=== PATIENT | female | born 1930 | race Caucasian/White ===

== ENCOUNTER 2016-10-28 09:11 | Emergency (ER) | payer MEDICARE ==
[~2016-10-28] VITALS: Ht 149.9 cm; Wt 64.0 kg
[~2016-10-28 09:11] MED LIST: ACETAMIN500 M2 PO; ACIPHEX20 MG PO; ALBUTEROL SUL0.083 % IN; ALBUTEROL0.5 % IN; ALBUTEROL2.5 MG/3 M IN; ALENDRONATE SOD70 MG PO; ALENDRONATE70 MG PO; AMOXICILLIN500 MG PO; ASPIRIN81 MG PO; AUGMENTIN875 MG PO; BROVANA15 MCG IN; BUDESONID2 IN; BUDESONID2 NEB; CALCIUM500 M4 OR; CEFTIN250 MG PO; CEFUROXIME500 MG PO; CYANOCOBALAM1000 MCG IJ; CYANOCOBALAM1000 MCG IM; DIGOXIN0.125 MG PO; DILTIAZEM HCL60 MG PO; DOXYCYC MONO100 M1 PO; DOXYCYCL HYC100 M3 PO; DUONEB IN; E400400 UNIT OR; EFFIENT5 MG PO; ELAVIL10 MG PO; FLUARIX QUADRIV1 INJ IM; FLUZONE1 M1 IM; FOSAMAX70 MG PO; GYNE-LOTRIMIN1 % EX; HYDRALAZINE10 MG PO; KEFLEX500 M1 PO; LOPRESSOR25 MG PO; LOSARTAN POT25 MG PO; LOSARTAN POTASS50 MG PO; LOTRISONE CREAM15 G1 EX; Levaquin PO; MAGNESIUM500 MG OR; MEDDOSEPAK OR; MEDDOSEPAK PO; METOPROL TAR25 M1 PO; METOPROL TAR25 MG PO; MONTELUKAST SOD10 MG PO; MUCINEX600 MG OR; NAPROXEN250 MG PO; NAPROXEN500 MG OR; NAPROXEN500 MG PO; NEXIUM40 M1 PO; NIFEDIPINE10 M1 PO; OMEPRAZOLE20 MG PO; OMNICEF300 M1 PO; OXY1; PAROXETINE10 MG PO; PLAVIX75 MG PO; PREDNISONE10 MG PO; PREDNISONE20 MG PO; PREDNISONE5 MG PO; PRILOSEC20 MG PO; PROAIR HFA IN; PULMICORT0.25 MG/2 IN; REMERON15 MG PO; RESTORIL15 MG PO; SENNA-PLUS1 TAB PO; SLEEP OR; SMZ-TMP DS1 TAB PO; SODIUM CHLOR3 % IN; SONATA10 M1 PO; SPIRIVA IN; SYMBICORT1 AE1 IN; TRAMADOL HCL50 MG PO; VITAMIN B-150 MG OR; VITAMIN C500 M1 OR; VITAMIN D1000 UNIT OR; VITAMIN D31000 UNI1 OR; VITAMIN D50000 UN1 PO; VITAMIN E400 UNIT PO; ZITHROMAX250 MG PO; ZOFRAN ODT4 MG PO; ZPAK PO
[2016-10-28 10:30] LABS: HEMATOCRIT 33.8 % (37.0-47.0); HEMOGLOBIN 11.5 g/dl (12.0-16.0); IMMATURE GRANULOCYTES 0.2 % (0.0-1.0); MEAN CELL VOLUME 93.4 fL CALC (80.0-100.0); MEAN CORPUSCULAR HGB 31.8 pG CALC (26.0-32.0); NEUT# 6.61 thou/uL (2.00-7.15); RED BLOOD COUNT 3.62 mill/uL (4.20-5.60); RED CELL DISTRI WIDTH 14.7 % (11.5-15.5)
[2016-10-28 11:04] LABS: ALKALINE PHOSPHATASE 97 u/l (38-126); ANION GAP 13 (6-22 (CALC)); BILIRUBIN, TOTAL 0.5 mg/dL (0.0-1.4); BUN 14 mg/dL (8-23); BUN/CREATININE RATIO 17 (12-20 (CALC)); CALCIUM 9.2 mg/dL (8.4-10.2); CARBON DIOXIDE 29 mmol/l (22-30); CHLORIDE 101 mmol/l (95-108); CREATININE 0.8 mg/dL (0.5-1.0); GFR > 60 ML/MIN (>=60 (CALC)); GFR FOR AFR.AMER. > 60 ML/MIN (>=60 (CALC)); GLUCOSE 116 mg/dL (82-115); POTASSIUM 4.1 mmol/l (3.5-5.1); SGOT/AST 26 u/l (9-36); SGPT/ALT 33 u/l (11-66); SODIUM 139 mmol/l (137-146); TOTAL PROTEIN 7.7 g/dL (6.3-8.2)
[2016-10-28 11:17] LABS: MYOGLOBIN 146 ng/mL (0 - 62)
[2016-10-28 11:17] LABS: URINE BILIRUBIN - DIPSTICK NEGATIVE (NEGATIVE); URINE BLOOD DIPSTICK NEGATIVE (NEGATIVE); URINE CLARITY CLEAR; URINE COLOR YELLOW; URINE GLUCOSE - DIPSTICK NEGATIVE (NEGATIVE); URINE KETONE NEGATIVE (NEGATIVE); URINE NITRITE - DIPSTICK NEGATIVE (Negative); URINE PROTEIN - DIPSTICK NEGATIVE (NEG-TRACE); URINE SPECIFIC GRAVITY <=1.005; URINE UROBILINOGEN - DIPSTICK 0.2 E.U./dL (0.2)
[2016-10-28 11:18] LABS: BARBITURATES NEGATIVE (NEGATIVE); COCAINE NEGATIVE (NEGATIVE); METHADONE NEGATIVE (NEGATIVE); OXCYCODONE NEGATIVE (NEGATIVE); TETRAHYDROCANNABIONOL NEGATIVE (NEGATIVE); TRICYLIC ANTIDEPRESSANTS NEGATIVE (NEGATIVE); URINE LEUK ESTERASE SMALL (NEGATIVE)
[2016-10-28 11:27] LABS: URINE BACTERIA RARE hpf; URINE SQUAMOUS EPITHELIAL CELL FEW EPI/hpf (0-FEW)
[2016-10-28] MEDS ORDERED: MACROBID100 MG PO (11:29)
[2016-10-28 11:39] VITALS: BP 143/61
== END 2016-10-28 12:03 | disposition home or self-care (01) ==
LOC: ED 09:11
PROVIDERS: Emergency Medicine
DX: J44.1 Chronic obstructive pulmonary disease with (acute) exacerbation (principal); N39.0 Urinary tract infection, site not specified; I10 Essential (primary) hypertension; I25.2 Old myocardial infarction; K21.9 Gastro-esophageal reflux disease without esophagitis; I25.10 Atherosclerotic heart disease of native coronary artery without angina pectoris; Z95.5 Presence of coronary angioplasty implant and graft

== ENCOUNTER 2016-11-29 10:50 | Emergency (ER) | payer MEDICARE ==
[~2016-11-29] VITALS: Ht 149.9 cm; Wt 45.0 kg
[~2016-11-29 10:50] MED LIST changes: +FLORASTOR250 M1 PO; +GUAIFENESI100 MG/51 PO; +KEFLEX500 MG PO; +MACROBID100 MG PO; +ZITHROMAX500 MG PO
[2016-11-29 11:47] LABS: HEMATOCRIT 36.1 % (37.0-47.0); HEMOGLOBIN 12.2 g/dl (12.0-16.0); IMMATURE GRANULOCYTES 0.8 % (0.0-1.0); MEAN CELL VOLUME 93.5 fL CALC (80.0-100.0); MEAN CORPUSCULAR HGB 31.6 pG CALC (26.0-32.0); MEAN CORPUSCULAR HGB CONC 33.8 g/L CALC (32.0-36.0); NEUT# 12.51 thou/uL (2.00-7.15); RED BLOOD COUNT 3.86 mill/uL (4.20-5.60)
[2016-11-29 11:59] LABS: ALBUMIN 3.7 g/dL (3.2-5.0); ALKALINE PHOSPHATASE 85 u/l (38-126); ANION GAP 14 (6-22 (CALC)); BILIRUBIN, TOTAL 0.6 mg/dL (0.0-1.4); BUN 24 mg/dL (8-23); BUN/CREATININE RATIO 30 (12-20 (CALC)); CALCIUM 8.7 mg/dL (8.4-10.2); CARBON DIOXIDE 24 mmol/l (22-30); CHLORIDE 102 mmol/l (95-108); CREATININE 0.8 mg/dL (0.5-1.0); GFR > 60 ML/MIN (>=60 (CALC)); GFR FOR AFR.AMER. > 60 ML/MIN (>=60 (CALC)); GLUCOSE 95 mg/dL (82-115); POTASSIUM 4.1 mmol/l (3.5-5.1); SGOT/AST 23 u/l (9-36); SGPT/ALT 41 u/l (11-66); SODIUM 136 mmol/l (137-146); TOTAL PROTEIN 7.1 g/dL (6.3-8.2)
[2016-11-29 12:11] LABS: MYOGLOBIN 85 ng/mL (0 - 62)
[2016-11-29 14:18] LABS: URINE BILIRUBIN - DIPSTICK NEGATIVE (NEGATIVE); URINE BLOOD DIPSTICK NEGATIVE (NEGATIVE); URINE CLARITY CLEAR; URINE COLOR YELLOW; URINE GLUCOSE - DIPSTICK NEGATIVE (NEGATIVE); URINE KETONE NEGATIVE (NEGATIVE); URINE LEUK ESTERASE NEGATIVE (NEGATIVE); URINE NITRITE - DIPSTICK NEGATIVE (Negative); URINE PROTEIN - DIPSTICK NEGATIVE (NEG-TRACE); URINE SPECIFIC GRAVITY <=1.005; URINE UROBILINOGEN - DIPSTICK 0.2 E.U./dL (0.2)
[2016-11-29 14:46] VITALS: BP 142/65
== END 2016-11-29 14:47 | disposition home or self-care (01) ==
LOC: ED 10:50
PROVIDERS: Emergency Medicine
DX: E87.70 Fluid overload, unspecified (principal); R07.9 Chest pain, unspecified; R06.02 Shortness of breath; R00.1 Bradycardia, unspecified

== ENCOUNTER 2017-03-01 15:43 | Emergency (ER) | payer MEDICARE ==
[~2017-03-01] VITALS: Ht 147.3 cm; Wt 65.0 kg
[~2017-03-01 15:43] MED LIST changes: +CBD SL; +ESOMEPRAZOLE MA20 MG PO; +NASOCORT NAB; +PROAIR RES108 MCG/AC; +SINGULAIR10 MG PO; +[UNRECOGNIZED DRUG - OTHER] SL
[2017-03-01 16:23] LABS: HEMATOCRIT 35.1 % (37.0-47.0); HEMOGLOBIN 11.6 g/dl (12.0-16.0); IMMATURE GRANULOCYTES 0.2 % (0.0-1.0); MEAN CELL VOLUME 95.9 fL CALC (80.0-100.0); MEAN CORPUSCULAR HGB 31.7 pG CALC (26.0-32.0); NEUT# 6.9 thou/uL (2.00-7.15); RED BLOOD COUNT 3.66 mill/uL (4.20-5.60); RED CELL DISTRI WIDTH 13.7 % (11.5-15.5)
[2017-03-01 16:39] LABS: ALBUMIN 4.1 g/dL (3.2-5.0); ALKALINE PHOSPHATASE 103 u/l (38-126); ANION GAP 16 (6-22 (CALC)); BILIRUBIN, TOTAL 0.3 mg/dL (0.0-1.4); BUN 20 mg/dL (8-23); BUN/CREATININE RATIO 22 (12-20 (CALC)); CALCIUM 9.1 mg/dL (8.4-10.2); CARBON DIOXIDE 26 mmol/l (22-30); CHLORIDE 105 mmol/l (95-108); CREATININE 0.9 mg/dL (0.5-1.0); GFR 59 ML/MIN (>=60 (CALC)); GFR FOR AFR.AMER. > 60 ML/MIN (>=60 (CALC)); GLUCOSE 108 mg/dL (82-115); POTASSIUM 4.3 mmol/l (3.5-5.1); SGOT/AST 25 u/l (9-36); SGPT/ALT 30 u/l (11-66); SODIUM 143 mmol/l (137-146); TOTAL PROTEIN 7.5 g/dL (6.3-8.2)
[2017-03-01 16:52] LABS: MYOGLOBIN 59 ng/mL (0 - 62)
[2017-03-01 17:38] VITALS: BP 137/63
== END 2017-03-01 17:50 | disposition home or self-care (01) ==
LOC: ED 15:43
PROVIDERS: Emergency Medicine
DX: J44.1 Chronic obstructive pulmonary disease with (acute) exacerbation (principal); I10 Essential (primary) hypertension; I25.10 Atherosclerotic heart disease of native coronary artery without angina pectoris; K21.9 Gastro-esophageal reflux disease without esophagitis; Z95.5 Presence of coronary angioplasty implant and graft; I25.2 Old myocardial infarction; Z99.81 Dependence on supplemental oxygen; R06.02 Shortness of breath

== ENCOUNTER 2017-06-19 07:54 | Emergency (ER) | payer MEDICARE ==
[~2017-06-19] VITALS: Ht 144.8 cm; Wt 57.3 kg
[~2017-06-19 07:54] MED LIST changes: +LOSARTAN POTAS100 MG PO; +PROAIR RES108 MCG/AC PO
[2017-06-19 08:51] VITALS: BP 177/87
== END 2017-06-19 09:09 | disposition home or self-care (01) ==
LOC: ED 07:54
PROC: 0HQEXZZ Repair Left Lower Arm Skin, External Approach (ICD-10-PCS; principal; 2017-06-19)
DX: S51.812A Laceration without foreign body of left forearm, initial encounter (principal); X58.XXXA Exposure to other specified factors, initial encounter; Y93.01 Activity, walking, marching and hiking; Y92.009 Unspecified place in unspecified non-institutional (private) residence as the place of occurrence of the external cause; R06.02 Shortness of breath

== ENCOUNTER 2018-05-10 09:00 | Outpatient (RCR) | payer MEDICARE ==
--- NOTE | 2018-05-03 13:00 | NUR ---
Pt. in for Treatment Team and IOP. Pt. is clean and neat. Alert and oriented times 3. Knows the date. Affect is bright. Mood happy. Pt. sang 2 songs. Pt. states she is getting lots of help from the program. Pt. denies any suicidal ideations. Pt. is compliant with her medications. Pt. denies any mediation changes. Pt. to continue with her current treatment plan. Pt. attending IOP 2 times a week with monthly 1:1. Will follow up with Pt. in one month. Treatment team concluded.
[2018-05-18] MEDS ORDERED: CIPROFLOXACN500 MG PO (16:02)
== END 2018-05-23 23:59 | disposition still patient (30) ==
LOC: SLIP3 09:00
PROVIDERS: ATTEND Specialist
DX: F33.0 Major depressive disorder, recurrent, mild (principal)

== ENCOUNTER 2018-05-12 16:16 | Inpatient (IN) | payer MEDICARE ==
[~2018-05-12] VITALS: Ht 154.9 cm; Wt 55.1 kg
--- NOTE | 2018-05-12 16:20 | NUR ---
PT TO ROOM VIA WHEELCHAIR.
--- NOTE | 2018-05-12 16:55 | NUR ---
INITIATED IV FLUIDS, ABT AND OFIRMEV ORDERED. VSS.
[2018-05-12 17:15] LABS: HEMATOCRIT 37.4 % (37.0-47.0); HEMOGLOBIN 12.4 g/dl (12.0-16.0); IMMATURE GRANULOCYTES 0.7 % (0.0-5.0); MEAN CELL VOLUME 94.7 fL CALC (80.0-100.0); MEAN CORPUSCULAR HGB 31.4 pG CALC (26.0-32.0); MEAN CORPUSCULAR HGB CONC 33.2 g/L CALC (32.0-36.0); NEUT# 16.99 thou/uL (2.00-7.15); RED BLOOD COUNT 3.95 mill/uL (4.20-5.60); RED CELL DISTRI WIDTH 14.1 % (11.5-15.5)
[2018-05-12 17:33] LABS: ALBUMIN 3.8 g/dL (3.2-5.0); ALKALINE PHOSPHATASE 120 u/l (38-126); ANION GAP 15 (6-22 (CALC)); BILIRUBIN, TOTAL 0.9 mg/dL (0.0-1.4); BUN 17 mg/dL (8-23); BUN/CREATININE RATIO 21 (12-20 (CALC)); CARBON DIOXIDE 25 mmol/l (22-30); CHLORIDE 99 mmol/l (95-108); CREATININE 0.8 mg/dL (0.5-1.0); GFR > 60 ML/MIN (>=60 (CALC)); GFR FOR AFR.AMER. > 60 ML/MIN (>=60 (CALC)); POTASSIUM 4.4 mmol/l (3.5-5.1); SGOT/AST 30 u/l (9-36); SODIUM 135 mmol/l (137-146); TOTAL PROTEIN 7.7 g/dL (6.3-8.2)
--- NOTE | 2018-05-12 17:46 | NUR ---
INITIATED IV ZITHROMAX ORDERED. PT RESP EVEN AND UNLABORED, MAINTAINING O2 SAT 95% ON O2 @2LPM VIA NC
--- NOTE | 2018-05-12 18:05 | NUR ---
PT AWAITING LAB RESULTS, DAUGHTER AT BEDSIDE. VSS. RESP EVEN AND UNLABORED
--- NOTE | 2018-05-12 19:00 | NUR ---
PT UP TO BEDSIDE COMMODE UNABLE TO URINATE AT THIS TIME. VSS. PT BECAME DYPNEIC WITH MINIMAL EXERTION
--- NOTE | 2018-05-12 19:00 | NUR ---
RECEIVED REPORT FROM NURSE RODRIGUEZ, PATIENT AWAKE, FAMILY IN ROOM, C/O PAIN ON OPERATIVE SITE, WILL MEDICATE, CALL LIGHT AT REACH
--- NOTE | 2018-05-12 19:56 | NUR ---
REPORT CALLED TO SHILOH RODRIGUEZ MED/SURG.
[2018-05-12 20:10] VITALS: BP 128/45
--- NOTE | 2018-05-12 20:10 | NUR ---
RECEEIVED REPORT FROM ER NURSE RESHMA, TRANSPORTED VIA BED,HOOKED TO 02 AT 3LPM, ADMITTING DX OF COPD EXACERBATION, PATIENT NOTED TO HAVE EXERTIONAL DYSPNEA, WITH SALINE LOCK ON LAC G20, NOTED TO HAVE PRODUCTIVE COUGH THICK GREEN IN COLOR, PATIENT ORIENTED TO ROOM AND CALL LIGHT SYSTEM BED ALARM IN PLACE. WILL CONTINUE TO MONITOR.
--- NOTE | 2018-05-12 20:10 | NUR ---
PT TO RM 268 ON TELE WITH RN.
--- NOTE | 2018-05-12 22:18 | NUR ---
CONTACTED DR. NERI WITH HOME MED[facility], WILL PUT ORDER IN PLACE,
[2018-05-13] VITALS (7 sets, daily range): BP systolic 120–161; BP diastolic 48–73
[2018-05-13 01:11] LABS: URINE BILIRUBIN - DIPSTICK NEGATIVE (NEGATIVE); URINE BLOOD DIPSTICK TRACE-INTACT (NEGATIVE); URINE COLOR YELLOW; URINE GLUCOSE - DIPSTICK NEGATIVE (NEGATIVE); URINE KETONE TRACE mg/dL (NEGATIVE); URINE LEUK ESTERASE NEGATIVE (NEGATIVE); URINE NITRITE - DIPSTICK NEGATIVE (Negative); URINE PROTEIN - DIPSTICK 30 mg/dL (NEG-TRACE); URINE UROBILINOGEN - DIPSTICK 0.2 E.U./dL (0.2)
--- NOTE | 2018-05-13 01:13 | NUR ---
PATIENT ALERT AND ORIENTED ABLE TO MAKE NEEDS KNOWN, ON O2 @3LPM VIA NC, NOTED TO HAVE SOB ON EXERTION, BSC IN PLACE, CURRENTLY RESTING IN BED, CALL LIGHT AT REACH
[2018-05-13 01:14] LABS: URINE BACTERIA FEW hpf; URINE SQUAMOUS EPITHELIAL CELL FEW EPI/hpf (0-FEW)
--- NOTE | 2018-05-13 05:19 | NUR ---
PATIENT RESTING IN BED, EYES CLOSED,REMAINS ON O2 AT 3LPM VIA NC, CALL LIGHT AT REACH,
--- NOTE | 2018-05-13 07:05 | NUR ---
REPORT RECEIVED FROM NIGHT NURSE; PT SITTING UP IN BED, AWAKE, ALERT; RESP EVEN AND UNLABORE; NO S/S OF DISTRESS NOTED; CALL SOLO IN REACH.
--- NOTE | 2018-05-13 08:21 | NUR ---
PT SITTING UP IN BED EATING BREAKFAST; 02@3L NC; PULSES STRONG; TELE IN PLACE; ACTIVE BOWEL SOUND; IV PATENT FLUSED WELL, SITE APPEARS HEALTHY; BSC; NO COUGH NOTED; CALL SOLO IN REACH;
--- NOTE | 2018-05-13 12:19 | NUR ---
CHILDREN'S BOOK AUTHOR AT BEDSIDE TO OBTAIN VITALS; PT SITTING UP IN BED EATING LUNCH AND WATCHING TV; 02 @3L NC; RESP EVEN AND UNLABORED; SUPTUM CUP PROVIDED FOR A SPUTUM SAMPLE FOR LAB; PT VERBALIZED UNDERSTANDING; VOICE NO CONCERNS; CALL SOLO IN REACH.
--- NOTE | 2018-05-13 13:10 | NUR ---
PT GOING DOWN FOR CT VIA W/C, 02 @3L NC; ACCOMPANIED BY A VOLUNTEER, [place] PASS PROVIDED; IN STABLE CONDITION.
--- NOTE | 2018-05-13 13:28 | NUR ---
PT BACK FROM CT, ACCOMPANIED BY A VOLUNTEER IN STABLE CONDITION; RESIDENTIAL BUILDING INSPECTOR ASSISTED PT BACK TO BED.
--- NOTE | 2018-05-13 15:52 | NUR ---
PT SITTING UP IN BED; RESP EVEN AND UNLABORED ON 02@3L NC; CALL SOLO IN REACH; NO S/S OF DISTRESS NOTED;
--- NOTE | 2018-05-13 19:00 | NUR ---
PATIENT SITTING IN HIGH FOWLERS POSITION, HOOKED TO 02 AT 3LPM, WITH EVEN UNLABORED BREATHING, NO SIGNS OF RESPIRATORY DISTRESS NOTED, DAUGHTER INSIDE ROOM, CALL LIGHT AT REACH
--- NOTE | 2018-05-13 20:00 | NUR ---
PATIENT ALERT AND ORIENTED ABLE TO MAKE NEEDS KNOWN, DENIES PAIN OR DISCOMFORTS AT THIS TIME, WITH SALINE LOCK G20 ON LAC PATENT, ON TELE READING ST 101, HOOKED TO 02 AT 3LPM VIA NC WITH EVEN UNLABORED BREATHING. DAUGHTER IN ROOM CALL LIGHT AT REACH.
--- NOTE | 2018-05-14 00:22 | NUR ---
AROUND 2345 TELE READING SHOWED AFIB, ASSESSED PATIENT DENIES CHEST PAIN AND DIZZINESS, V/S TAKEN FOLLOWS: BP142/68 T 98.8 P 102 R21 POX 97% ON 3LPMVIA NC, STAT EKG DONE, AT [address] NERI LEFT A VOICEMAIL TO CALL BACK, WILL CONTINUE TO MONITOR.
--- NOTE | 2018-05-14 00:33 | NUR ---
CALLED DR. NERI INFORMED HIM OF PATIENTS TELE READING AFIB, AND STAT EKG SHOWS AFIB, NO HX OF AFIB, INFORMED THAT PT IS ASYMPTOMATIC NO DIZINESS V/S 142/68, 98.8F, HR 102 R 21 POX 97% ON 3LPM, INFORMED ALSO ABOUT THE CURRENT MEDICATIONS, MADE NO NEW ORDERS AT THIS TIME, WILL CONTINUE TO MONITOR.
[2018-05-14 04:10] VITALS: BP 120/74
--- NOTE | 2018-05-14 04:31 | NUR ---
PATIENT HAS UNSTEADY GAIT WAS TRYING TO GET OUT OF BED TO GO TO COMMODE, DIDNT ASK FOR ASSISTANCE, PUT ON COMMODE, AND ASSISTED BACK TYO BED, BED ALARM IN PLACE
--- NOTE | 2018-05-14 05:45 | NUR ---
PATIENT ALERT AND ORIENTED, DENIES PAIN OR DISCOMFORT, EDUCATED ON TO CALL FOR ASSISTANCE FOR TRANSFER, BED ALARM IN PLACE.
[2018-05-14 06:10] LABS: IMMATURE GRANULOCYTES 0.5 % (0.0-5.0); MEAN CELL VOLUME 96.3 fL CALC (80.0-100.0); MEAN CORPUSCULAR HGB 31.9 pG CALC (26.0-32.0); MEAN CORPUSCULAR HGB CONC 33.1 g/L CALC (32.0-36.0); NEUT# 10.46 thou/uL (2.00-7.15); RED BLOOD COUNT 3.2 mill/uL (4.20-5.60); RED CELL DISTRI WIDTH 14.3 % (11.5-15.5)
[2018-05-14 06:11] LABS: HEMATOCRIT 30.8 % (37.0-47.0); HEMOGLOBIN 10.2 g/dl (12.0-16.0)
[2018-05-14 06:13] LABS: ALKALINE PHOSPHATASE 110 u/l (38-126); AMYLASE < 30 u/l (30-110); ANION GAP 13 (6-22 (CALC)); BILIRUBIN, TOTAL 0.8 mg/dL (0.0-1.4); BUN 12 mg/dL (8-23); BUN/CREATININE RATIO 17 (12-20 (CALC)); CARBON DIOXIDE 25 mmol/l (22-30); CHLORIDE 103 mmol/l (95-108); CREATININE 0.7 mg/dL (0.5-1.0); GFR > 60 ML/MIN (>=60 (CALC)); GFR FOR AFR.AMER. > 60 ML/MIN (>=60 (CALC)); LIPASE < 10 u/l (23-300); MAGNESIUM 1.9 mg/dL (1.6-2.3); POTASSIUM 3.9 mmol/l (3.5-5.1); SGOT/AST 23 u/l (9-36); SODIUM 137 mmol/l (137-146)
[2018-05-14 06:18] LABS: ALBUMIN 2.8 g/dL (3.2-5.0)
--- NOTE | 2018-05-14 06:30 | NUR ---
ED CALLED ABOUT PATIENT TELE READING AFIB 130'S, ASSESSED PATIENT V/S FOLLOWS; BP 110/58 T 98.4 HR 112, R23 POX 96% ON 3LPM VIA NC, DENIES CHEST PAIN OR ANY DISCOMFORTS AT THIS TIME, PATIENT WAS COUGHING AND WAS JUST GIVEN PULMICORT NEB. WILL CONTINUE TO MONITOR.
--- NOTE | 2018-05-14 06:51 | NUR ---
CALLED DR. NERI ABOUT PATIENT TELE READING AFIB 130'S, INFORMED ABOUT PREVIOUS V/S AND WAS COUGHING AFTER BREATHING TREATMENT, NO NEW ORDERS MADE AT THIS TIME, AND CONTINUE MONITORING
--- NOTE | 2018-05-14 07:25 | NUR ---
PT REPORT RECIEVED FROM MICHAEL MATAMOROS. PT WATCHING TELEVISION TALKING W/ DAUGHTER. NO S/S OF DISTRESS. CALL LIGHT IN REACH. WILL CONTINUE TO MONITOR.
[2018-05-14 09:27] VITALS: BP 121/61
--- NOTE | 2018-05-14 09:27 | NUR ---
PT A/O X3. SPEECH IS CLEAR. RESP EVEN AND UNLABORED. LUNG SOUNDS DIMINISHED. TELE IN PLACE. PT DOES HAS SOME SOB. O2 @3L ON PT. BOWEL SOUNDS ACTIVE X4. STRONG RADIAL AND PEDAL PULSES. #2O LAC SL. FLUSHED AND PATENT. SITE APPEARS HEALTHY. SKI INTACT. PT DENIES ANY PAIN OR NEEDS. POC DISCUSSED. SAFETY PRECAUTIONS IN PLACE. CALL LIGHT IN REACH. WILL CONTINUE TO MONITOR.
--- NOTE | 2018-05-14 10:14 | NUR ---
SEAM RUBBER CALLED STATING PT HAS CONVERTED FROM AFIBB BACK TO SINUS RHYTHM. WILL CONTINUE TO MONITOR
--- NOTE | 2018-05-14 12:25 | NUR ---
PT SITTING IN RECLINER EATING LUNCH. TELE IN PLACE. NO C/O PAIN OR NEEDS. CALL LIGHT IN REACH. WILL CONTINUE TO MONITOR.
[2018-05-14 12:31] VITALS: BP 133/66
--- NOTE | 2018-05-14 13:10 | NUR ---
DR RAMIREZ IN TO SEE PT. MADE AWARE OF AFIBB CONVERSION DURING WET CHAR CONVEYOR TENDER. NO NEW ORDERS AT THIS TIME.
--- NOTE | 2018-05-14 16:40 | NUR ---
PT SITTING IN RECLINER TALKING W/ FAMILY. NO C/O PAIN OR NEEDS. TELE IN PLACE. CALL LIGHT IN REACH. WILL CONTINUE TO MONITOR.
[2018-05-14 16:44] VITALS: BP 143/66
[2018-05-14 19:00] VITALS: BP 160/72
--- NOTE | 2018-05-14 19:40 | NUR ---
REPORT REVCIVED MARCUS PORRAS LPN. POC DISCUSSED. PT VOICED UNDERSTANDING. PT A/O ABLE TO VOICE NEEDS. SOME FORGETFULLNESS NOTED.Pt iv nicolasnet. no s.s of infection.pt educated to ask for assistance before getted out of the bed. eill continue to monitor. will monitor.
[2018-05-15] VITALS: BP 144/67
--- NOTE | 2018-05-15 | NUR ---
iv abx administered. pt resting in bed with eyes closed. iv patent. no sign and symptoms of infection. meds toleratd will. educated not to het oob with help. bed in lowest position. will monitor.
--- NOTE | 2018-05-15 04:00 | NUR ---
pt restin in bed with eyes close. no other concern at this time. will monitor.
[2018-05-15 04:20] VITALS: BP 151/82
[2018-05-15 06:11] LABS: CHOLESTEROL HDL RATIO 2.5 (<4.4 (CALC))
[2018-05-15 06:14] LABS: HEMATOCRIT 31.9 % (37.0-47.0); HEMOGLOBIN 10.4 g/dl (12.0-16.0); IMMATURE GRANULOCYTES 0.5 % (0.0-5.0); MEAN CELL VOLUME 96.4 fL CALC (80.0-100.0); MEAN CORPUSCULAR HGB 31.4 pG CALC (26.0-32.0); MEAN CORPUSCULAR HGB CONC 32.6 g/L CALC (32.0-36.0); NEUT# 6.16 thou/uL (2.00-7.15); RED BLOOD COUNT 3.31 mill/uL (4.20-5.60); RED CELL DISTRI WIDTH 14.3 % (11.5-15.5)
[2018-05-15 06:41] LABS: ALBUMIN 2.9 g/dL (3.2-5.0); ALKALINE PHOSPHATASE 107 u/l (38-126); ANION GAP 13 (6-22 (CALC)); BILIRUBIN, TOTAL 0.6 mg/dL (0.0-1.4); BUN 10 mg/dL (8-23); BUN/CREATININE RATIO 13 (12-20 (CALC)); CARBON DIOXIDE 26 mmol/l (22-30); CHLORIDE 105 mmol/l (95-108); CREATININE 0.7 mg/dL (0.5-1.0); GFR > 60 ML/MIN (>=60 (CALC)); GFR FOR AFR.AMER. > 60 ML/MIN (>=60 (CALC)); POTASSIUM 3.7 mmol/l (3.5-5.1); SGOT/AST 27 u/l (9-36); SODIUM 139 mmol/l (137-146); TOTAL PROTEIN 6.1 g/dL (6.3-8.2)
[2018-05-15 08:20] VITALS: BP 137/59
--- NOTE | 2018-05-15 09:35 | NUR ---
PT SITTING UP IN RECLINER, WATCHING TV; A/OX3; RESP LABORED ON 02@3L NC; PULSES STRONG; LUNGS DIMINISHED; ACTIVE BOWEL SOUND; SKIN INTACT; TELE IN PLACE; IV FLUSHED WITHOUT DIFFICULTY; SAFETY PRECAUTION REINFORCE; CALL SOLO IN REACH;
[2018-05-15 11:00] VITALS: BP 136/55
--- NOTE | 2018-05-15 11:33 | NUR ---
DR RAMIREZ AT BEDSIDE TO DISCUSS POC; SITTING UP WATCHING TV; [address]; TELE IN PLACE; VOICE NO CONCERNS; CALL SOLO IN REAC;
[2018-05-15 16:30] VITALS: BP 133/75
--- NOTE | 2018-05-15 16:41 | NUR ---
PT REMAIN SITTING UP IN RECLINER; VENOFER INFUSING WITHOUT DIFFICULTY; SITE APPEARS HEALTHY; PT VOICE NO CONCERNS; CALL SOLO IN REACH.
[2018-05-15 19:10] VITALS: BP 165/74
--- NOTE | 2018-05-15 19:26 | NUR ---
REPORT GIVEN BY MICHAEL ZUNIGA. PATIENT SITTING IN RECLINER WITH DAUGHTER PRESENT. RESP EVEN AND UNLABORED, O2 VIA NC PRESENT. NO S/S OF DISTRESS NOTED. CALL LIGHT WITHIN REACH. FALL PRECAUTIONS IN PLACE. PLAN OF CARE DISCUSSED. PATIENT INFORMED TO CALL WITH ANY ANY QUESTIONS OR CONCERNS. ASSESSMENT COMPLETE.
[2018-05-16 00:10] VITALS: BP 145/64
--- NOTE | 2018-05-16 00:50 | NUR ---
PATIENT RESTING WITH EYES CLOSED. RESP EVEN AND UNLABORED. NO S/S OF DISTRESS NOTED.
[2018-05-16 04:20] VITALS: BP 164/63
--- NOTE | 2018-05-16 04:35 | NUR ---
PATIENT RESTING WITH EYES CLOSED. RESP EVEN AND UNLABORED. NO S/S OF DISTRESS NOTED.
[2018-05-16 05:16] LABS: HEMATOCRIT 31.6 % (37.0-47.0); HEMOGLOBIN 10.1 g/dl (12.0-16.0); IMMATURE GRANULOCYTES 0.5 % (0.0-5.0); MEAN CELL VOLUME 96.9 fL CALC (80.0-100.0); NEUT# 6.13 thou/uL (2.00-7.15); RED BLOOD COUNT 3.26 mill/uL (4.20-5.60); RED CELL DISTRI WIDTH 14.3 % (11.5-15.5)
[2018-05-16 05:50] LABS: ALBUMIN 2.7 g/dL (3.2-5.0); ALKALINE PHOSPHATASE 103 u/l (38-126); ANION GAP 11 (6-22 (CALC)); BILIRUBIN, TOTAL 0.6 mg/dL (0.0-1.4); BUN 8 mg/dL (8-23); BUN/CREATININE RATIO 12 (12-20 (CALC)); CARBON DIOXIDE 27 mmol/l (22-30); CHLORIDE 106 mmol/l (95-108); CREATININE 0.7 mg/dL (0.5-1.0); GFR > 60 ML/MIN (>=60 (CALC)); GFR FOR AFR.AMER. > 60 ML/MIN (>=60 (CALC)); MAGNESIUM 1.9 mg/dL (1.6-2.3); POTASSIUM 3.6 mmol/l (3.5-5.1); SGOT/AST 42 u/l (9-36); SODIUM 140 mmol/l (137-146); TOTAL PROTEIN 5.8 g/dL (6.3-8.2)
[2018-05-16 07:45] VITALS: BP 139/61
--- NOTE | 2018-05-16 08:00 | NUR ---
REPORT RECEIVED FROM MICHAEL TAPIA. PT ASSISTED BY STAFF FOR SHOWER. DENIES PAIN. REPORTING OF CONCERNS ENCOURAGED. PLAN OF CARE DISCUSSED. MEDICATIONS ADN SCHEDULES REVIEWED. PT STATES UNDERSTANDING OF INFORMATION. CALL LIGHT REVIEWED AND IN REACH. PT SITTING IN CHAIR AT BEDSIDE. FALL PRECAUTIONS AND ASKING FOR ASSISTANCE REINFORCED.
[2018-05-16 11:32] VITALS: BP 141/68
--- NOTE | 2018-05-16 12:00 | NUR ---
DR. RAMIREZ IN TO SEE PT. PLAN OF CARE UPDATED. PT SITTING IN CHAIR AT BEDSIDE. NO COMPLAINTS.
[2018-05-16 15:44] VITALS: BP 149/77
--- NOTE | 2018-05-16 16:40 | NUR ---
PT ASSISTED TO BED. RESTING COMFORTABLY NOW.
[2018-05-16 19:00] VITALS: BP 141/77
--- NOTE | 2018-05-16 20:03 | NUR ---
PT RESTING IN BED, NO SIGNS OF DISTRESS NOTED, RESP EVEN AND UNLABORED. DISCUSSED POC, AND MEDICATIONS DUE. PT IN AGREEMENT. ALERT AND ORIENTED X3, ASSESSMENT COMPLETED. VOICES NO NEEDS OR COMPLAINTS AT THIS TIME. CALL LIGHT IN REACH,CONTINUE TO MONITOR.
[2018-05-17] VITALS (7 sets, daily range): BP systolic 129–161; BP diastolic 61–73
--- NOTE | 2018-05-17 00:09 | NUR ---
INTIATED IV MIRANDA, PT VOICES NO NEEDS OR COMPLAINTS AT THIS TIME, CALL LIGHT IN REACH,CONTINUE TO MONITOR.
--- NOTE | 2018-05-17 01:54 | NUR ---
PT RESTING IN BED, WITH EYES CLOSED, NO SIGNS OF DISTRESS NOTED, RESP EVEN AND UNLABORED. CALL LIGHT IN REACH,CONTINUE TO MONITOR.
[2018-05-17 05:31] LABS: HEMATOCRIT 29.8 % (37.0-47.0); HEMOGLOBIN 9.9 g/dl (12.0-16.0); IMMATURE GRANULOCYTES 0.4 % (0.0-5.0); MEAN CELL VOLUME 96.4 fL CALC (80.0-100.0); MEAN CORPUSCULAR HGB CONC 33.2 g/L CALC (32.0-36.0); NEUT# 7.77 thou/uL (2.00-7.15); RED BLOOD COUNT 3.09 mill/uL (4.20-5.60); RED CELL DISTRI WIDTH 14.2 % (11.5-15.5)
--- NOTE | 2018-05-17 05:35 | NUR ---
IV MIRANDA REED, PT VOICES NO NEEDS OR COMPLAINTS AT THIS TIME. CALL LIGHT IN REACH,CONTINUE TO MONITOR.
[2018-05-17 05:54] LABS: ALBUMIN 2.7 g/dL (3.2-5.0); ALKALINE PHOSPHATASE 92 u/l (38-126); ANION GAP 12 (6-22 (CALC)); BILIRUBIN, TOTAL 0.7 mg/dL (0.0-1.4); BUN 6 mg/dL (8-23); BUN/CREATININE RATIO 8 (12-20 (CALC)); CARBON DIOXIDE 28 mmol/l (22-30); CHLORIDE 104 mmol/l (95-108); CREATININE 0.7 mg/dL (0.5-1.0); GFR > 60 ML/MIN (>=60 (CALC)); GFR FOR AFR.AMER. > 60 ML/MIN (>=60 (CALC)); MAGNESIUM 1.8 mg/dL (1.6-2.3); POTASSIUM 3.5 mmol/l (3.5-5.1); SGOT/AST 39 u/l (9-36); SODIUM 140 mmol/l (137-146); TOTAL PROTEIN 5.7 g/dL (6.3-8.2)
--- NOTE | 2018-05-17 07:00 | NUR ---
SHIFT CHANGE REPORT, PT AWAKE ALERT AND OIRENTED SITTING UP IN RECLINER, NO C/O DISCOMFORT, O2 @ 2L VIA NC IN PLACE, TELE MONITOR IN PLACE, CALL SOLO IN REACH.
--- NOTE | 2018-05-17 12:00 | NUR ---
SITTING UP IN RECLINER, ATE PORTION OF MEAL, INFORMED ABOUT HAVING SHOWER SOON AND GOING BACK TO BED TO REST, STATED UNDERSTANDING, WILL CONTINUE TO MONITOR.
--- NOTE | 2018-05-17 13:55 | NUR ---
Spoke with patient about medications. Pt understood uses of all medications. She had no pertinent questions at this time. Patient reports her medications are working for her and she is not experiencing any unwanted side effects. Pt acknowledged to reach out to pharmacy if any questions arise and we are available to answer them.
--- NOTE | 2018-05-17 16:09 | NUR ---
RESTING IN BED AT THIS TIME, ALL NEEDS MET/ADDRESSED, CALL SOLO IN REACH.
--- NOTE | 2018-05-17 19:25 | NUR ---
PT. SITTING UP IN RECLINER WATCHING TV;ASSESSMENT COMPLETED; IV SITE PATENT AND SL; DENIES NEEDS/PAIN; TELEMETRY IN PLACE; O2 INFUSING PER NC PER ORDER; ENCOURAGED TO CALL FOR ANY NEEDS; CALL LIGHT IS IN REACH.
--- NOTE | 2018-05-17 23:33 | NUR ---
PT. SITTING UP IN BED WITH NO DISTRESS NOTED; DENIES NEEDS; SCHED ABT HUNG; ENCOURAGED TO CALL FOR ANY NEEDS; CALL LIGHT IS IN REACH; BED ALARM SET; WILL CONTINUE TO MONITOR.
--- NOTE | 2018-05-18 02:00 | NUR ---
RESTING IN BED WITH EYES CLOSED; NO DISTRESS NOTED; RESP EVEN AND UNLABORED; BED ALARM ON; CALL LIGHT IS IN REACH.
[2018-05-18 03:35] VITALS: BP 137/65
--- NOTE | 2018-05-18 03:45 | NUR ---
PT. RESTING IN BED WITH EYES CLOSED; NO DISTRESS NOTED; RESP EVEN AND UNLABORED; CALL LIGHT IS IN REACH; WILL CONTINUE TO MONITOR.
[2018-05-18 05:05] LABS: HEMATOCRIT 31.6 % (37.0-47.0); HEMOGLOBIN 10.3 g/dl (12.0-16.0); IMMATURE GRANULOCYTES 0.7 % (0.0-5.0); MEAN CELL VOLUME 98.4 fL CALC (80.0-100.0); MEAN CORPUSCULAR HGB 32.1 pG CALC (26.0-32.0); MEAN CORPUSCULAR HGB CONC 32.6 g/L CALC (32.0-36.0); NEUT# 12.91 thou/uL (2.00-7.15); RED BLOOD COUNT 3.21 mill/uL (4.20-5.60); RED CELL DISTRI WIDTH 14.3 % (11.5-15.5)
[2018-05-18 06:18] LABS: ALBUMIN 2.7 g/dL (3.2-5.0); ALKALINE PHOSPHATASE 90 u/l (38-126); ANION GAP 13 (6-22 (CALC)); BILIRUBIN, TOTAL 0.6 mg/dL (0.0-1.4); BUN 6 mg/dL (8-23); BUN/CREATININE RATIO 9 (12-20 (CALC)); CARBON DIOXIDE 30 mmol/l (22-30); CHLORIDE 101 mmol/l (95-108); CREATININE 0.7 mg/dL (0.5-1.0); GFR > 60 ML/MIN (>=60 (CALC)); GFR FOR AFR.AMER. > 60 ML/MIN (>=60 (CALC)); MAGNESIUM 1.8 mg/dL (1.6-2.3); POTASSIUM 3.1 mmol/l (3.5-5.1); SGOT/AST 33 u/l (9-36); SODIUM 140 mmol/l (137-146); TOTAL PROTEIN 5.8 g/dL (6.3-8.2)
--- NOTE | 2018-05-18 08:21 | NUR ---
SHIFT CHANGE REPORT, PT AWAKE AND ALERT SITTING UP IN BED, O2 @ 2L VIA NC IN PLACE, TELE MONITOR IN PLACE, CALL SOLO IN REACH.
[2018-05-18 08:43] VITALS: BP 138/54
[2018-05-18 11:35] VITALS: BP 149/71
--- NOTE | 2018-05-18 12:34 | NUR ---
SITTING UP RECLINER HAVING MEAL, MEDICAL TEAM ROUNDED AND DISCUSSED PLAN OF CARE FOR PHYSICAL THERAPY THEN D/C HOME TODAY, DAUGHTER AT BEDSIDE AND BOTH PATIENT AND DAUGHTER AGREE WITH PLAN.
--- NOTE | 2018-05-18 15:40 | NUR ---
DAUGHTER HERE TO RECEIVE PT, FRUSTRATED PT IS NOT YET READY. PT WANTS TO GO HOME, WANTED PHYSICAL THERAPY ASSESSMENT BUT STAFF NOT HERE TODAY, INFORMED, WILL CONTINUE TO MONTIOR.
[2018-05-18] MEDS ORDERED: CIPROFLOXACN500 MG PO (16:02)
--- NOTE | 2018-05-18 16:38 | NUR ---
Discharge instructions given. Patient verbalizes understanding of same. Discharged in stable condition via Wheelchair to Home with family. All belongings sent with pt.
== END 2018-05-18 16:40 | disposition home health service (06) | DRG 178 ==
LOC: ED 16:16 → ED-I 18:41 → ED 18:54 → MS2 18:55
PROVIDERS: Family Medicine; ADMIT Internal Medicine; ATTEND Internal Medicine Nephrology
DX: J15.1 Pneumonia due to Pseudomonas (principal); J44.1 Chronic obstructive pulmonary disease with (acute) exacerbation; E46 Unspecified protein-calorie malnutrition; J96.10 Chronic respiratory failure, unspecified whether with hypoxia or hypercapnia; J44.0 Chronic obstructive pulmonary disease with (acute) lower respiratory infection; I11.9 Hypertensive heart disease without heart failure; I25.10 Atherosclerotic heart disease of native coronary artery without angina pectoris; J98.6 Disorders of diaphragm; E78.5 Hyperlipidemia, unspecified; I95.9 Hypotension, unspecified; R73.9 Hyperglycemia, unspecified; D64.9 Anemia, unspecified; I48.0 Paroxysmal atrial fibrillation; K21.9 Gastro-esophageal reflux disease without esophagitis; I08.1 Rheumatic disorders of both mitral and tricuspid valves; Z87.891 Personal history of nicotine dependence; I25.2 Old myocardial infarction; Z99.81 Dependence on supplemental oxygen; Z95.5 Presence of coronary angioplasty implant and graft; Z77.22 Contact with and (suspected) exposure to environmental tobacco smoke (acute) (chronic); Z68.22 Body mass index [BMI] 22.0-22.9, adult
CPT/HCPCS: G0378; J0131; J1650; J1756

== ENCOUNTER 2018-08-20 15:47 | Inpatient (IN) | payer MEDICARE ==
[~2018-08-20] VITALS: Ht 154.9 cm; Wt 53.2 kg
[~2018-08-20 15:47] MED LIST changes: +CARDIZEM30 MG PO; +CIPROFLOXACN500 MG PO; +PROBIOTIC PO; +THC SL; +VITAMIN C1000 MG PO
[2018-08-20 16:44] LABS: HEMATOCRIT 38.9 % (37.0-47.0); HEMOGLOBIN 12.8 g/dl (12.0-16.0); IMMATURE GRANULOCYTES 0.5 % (0.0-5.0); MEAN CORPUSCULAR HGB 32.2 pG CALC (26.0-32.0); MEAN CORPUSCULAR HGB CONC 32.9 g/L CALC (32.0-36.0); NEUT# 12.65 thou/uL (2.00-7.15); RED BLOOD COUNT 3.97 mill/uL (4.20-5.60)
[2018-08-20 17:06] LABS: ALKALINE PHOSPHATASE 129 u/l (38-126); BILIRUBIN, TOTAL 0.7 mg/dL (0.0-1.4); BUN 19 mg/dL (8-23); BUN/CREATININE RATIO 26 (12-20 (CALC)); CARBON DIOXIDE 24 mmol/l (22-30); CHLORIDE 103 mmol/l (95-108); CREATININE 0.7 mg/dL (0.5-1.0); GFR > 60 ML/MIN (>=60 (CALC)); GFR FOR AFR.AMER. > 60 ML/MIN (>=60 (CALC)); SGOT/AST 28 u/l (9-36); SODIUM 137 mmol/l (137-146)
[2018-08-20 17:10] LABS: ALBUMIN 4.2 g/dL (3.2-5.0); ANION GAP 15 (6-22 (CALC)); POTASSIUM 4.6 mmol/l (3.5-5.1); TOTAL PROTEIN 7.9 g/dL (6.3-8.2)
[2018-08-20 19:08] VITALS: BP 136/64
[2018-08-21 04:13] VITALS: BP 178/83
[2018-08-21 05:35] VITALS: BP 148/82
[2018-08-21 08:41] VITALS: BP 157/67
[2018-08-21 16:30] VITALS: BP 133/61
[2018-08-21 19:47] VITALS: BP 143/69
[2018-08-22 03:39] VITALS: BP 136/74
[2018-08-22 16:00] VITALS: BP 152/73
[2018-08-22 18:50] VITALS: BP 123/62
[2018-08-23 04:28] VITALS: BP 126/61
[2018-08-23 05:11] LABS: IMMATURE GRANULOCYTES 0.8 % (0.0-5.0); MEAN CORPUSCULAR HGB 32.6 pG CALC (26.0-32.0); MEAN CORPUSCULAR HGB CONC 32.6 g/L CALC (32.0-36.0); NEUT# 11.89 thou/uL (2.00-7.15); RED BLOOD COUNT 3.19 mill/uL (4.20-5.60); RED CELL DISTRI WIDTH 14.6 % (11.5-15.5)
[2018-08-23 05:16] LABS: HEMATOCRIT 31.9 % (37.0-47.0); HEMOGLOBIN 10.4 g/dl (12.0-16.0)
[2018-08-23 05:35] LABS: ALKALINE PHOSPHATASE 82 u/l (38-126); ANION GAP 10 (6-22 (CALC)); BUN 25 mg/dL (8-23); BUN/CREATININE RATIO 30 (12-20 (CALC)); CARBON DIOXIDE 25 mmol/l (22-30); CHLORIDE 109 mmol/l (95-108); CREATININE 0.8 mg/dL (0.5-1.0); GFR > 60 ML/MIN (>=60 (CALC)); GFR FOR AFR.AMER. > 60 ML/MIN (>=60 (CALC)); MAGNESIUM 2.2 mg/dL (1.6-2.3); POTASSIUM 4.2 mmol/l (3.5-5.1); SGOT/AST 33 u/l (9-36); SODIUM 140 mmol/l (137-146)
[2018-08-23 05:48] LABS: ALBUMIN 2.8 g/dL (3.2-5.0); BILIRUBIN, TOTAL 0.3 mg/dL (0.0-1.4); TOTAL PROTEIN 5.6 g/dL (6.3-8.2)
[2018-08-23 08:32] VITALS: BP 151/76
[2018-08-23 15:05] VITALS: BP 155/81
[2018-08-23 19:27] VITALS: BP 165/66
[2018-08-24 04:19] VITALS: BP 135/74
[2018-08-24 05:27] LABS: HEMATOCRIT 33.4 % (37.0-47.0); HEMOGLOBIN 11.1 g/dl (12.0-16.0); IMMATURE GRANULOCYTES 1.2 % (0.0-5.0); MEAN CELL VOLUME 99.4 fL CALC (80.0-100.0); MEAN CORPUSCULAR HGB CONC 33.2 g/L CALC (32.0-36.0); NEUT# 9.8 thou/uL (2.00-7.15); RED BLOOD COUNT 3.36 mill/uL (4.20-5.60); RED CELL DISTRI WIDTH 14.7 % (11.5-15.5)
[2018-08-24 06:01] LABS: ALBUMIN 3.1 g/dL (3.2-5.0); ALKALINE PHOSPHATASE 77 u/l (38-126); ANION GAP 12 (6-22 (CALC)); BILIRUBIN, TOTAL 0.4 mg/dL (0.0-1.4); BUN 19 mg/dL (8-23); BUN/CREATININE RATIO 27 (12-20 (CALC)); CARBON DIOXIDE 26 mmol/l (22-30); CHLORIDE 107 mmol/l (95-108); CREATININE 0.7 mg/dL (0.5-1.0); GFR > 60 ML/MIN (>=60 (CALC)); GFR FOR AFR.AMER. > 60 ML/MIN (>=60 (CALC)); MAGNESIUM 2.1 mg/dL (1.6-2.3); POTASSIUM 3.8 mmol/l (3.5-5.1); SGOT/AST 34 u/l (9-36); SODIUM 142 mmol/l (137-146); TOTAL PROTEIN 5.8 g/dL (6.3-8.2)
[2018-08-24 09:47] VITALS: BP 157/79
[2018-08-24] MEDS ORDERED: TOBRAMYCIN0.3 % IN (14:13)
== END 2018-08-24 16:08 | disposition home health service (06) | DRG 178 ==
LOC: ED 15:47 → ED-I 17:12 → ED 18:19 → MS2 18:20
PROVIDERS: Emergency Medicine; Internal Medicine Nephrology; ADMIT Internal Medicine; ATTEND Internal Medicine
DX: J15.1 Pneumonia due to Pseudomonas (principal); J44.1 Chronic obstructive pulmonary disease with (acute) exacerbation; J44.0 Chronic obstructive pulmonary disease with (acute) lower respiratory infection; I10 Essential (primary) hypertension; I25.10 Atherosclerotic heart disease of native coronary artery without angina pectoris; J98.6 Disorders of diaphragm; I48.0 Paroxysmal atrial fibrillation; K21.9 Gastro-esophageal reflux disease without esophagitis; L89.322 Pressure ulcer of left buttock, stage 2; Z99.81 Dependence on supplemental oxygen; Z87.891 Personal history of nicotine dependence; Z79.82 Long term (current) use of aspirin
CPT/HCPCS: G0378; J1650